=== PATIENT | male | born 1970 | race Caucasian/White ===

== ENCOUNTER 2023-01-02 10:42 | Day surgery (SDC) | payer BC ==
[2022-12-31 13:41] VITALS: BMI 30.2
[2023-01-02] MEDS: LACTATED RINGERS 1,000 ML IV SCH ×2 (11:20→12:01)
[2023-01-02] MEDS ORDERED: LIDOCAINE 1% (10MG/ML) FOR IV START INTRADERMA ONE (11:20)
[2023-01-02] MEDS ORDERED: PROPOFOL 10 MG/ML 20 ML VIAL IV ONE (12:04)
--- NOTE | 2023-01-02 12:16 | P.PCN ---
Date of Procedure: 01/02/23 Procedure(s) Performed: BRIEF HISTORY: Patient is a 52-year-old pleasant white male scheduled for an elective colonoscopy as a part of screening for colon cancer. PROCEDURE PERFORMED: Colonoscopy. PREOPERATIVE DIAGNOSIS: Screening for colon cancer. IV sedation per Anesthesia. PROCEDURE: After informed consent was obtained, the patient, was brought into the endoscopy unit. IV sedation was administered by Anesthesia under continuous monitoring. Digital rectal examination was normal. Initially the Olympus CF-160 flexible video colonoscope was then inserted in the rectum, gradually advanced into the cecum without any difficulty. Careful examination was performed as the scope was gradually being withdrawn. Ileocecal valve and the appendiceal orifice were visualized and appeared normal. Prep was excellent. Mucosa of the cecum, ascending colon, transverse colon, descending colon, sigmoid colon, and rectum appeared normal. Retroflexion was performed in the rectum and no lesions were seen. The patient tolerated the procedure well. IMPRESSION: Normal-appearing colon from rectum to cecum with no emesis of colorectal neoplasia . RECOMMENDATIONS: Findings of this examination were discussed with the patient as well as his family.. He was advised to have a repeat surveillance colonoscopy in 10 years.
[2023-01-02 13:16] VITALS: BP 124/82; PULSE 56; RESP 18; TEMP 96.8
== END 2023-01-02 12:55 | disposition home or self-care (01) ==
LOC: ORWHC2ENDO 10:42
PROVIDERS: ATTEND Internal Medicine Gastroenterology
DX: Z12.11 Encounter for screening for malignant neoplasm of colon (principal); Z88.0 Allergy status to penicillin
CPT/HCPCS: 45378; J2704; G0121

== ENCOUNTER → 2024-09-03 | Outpatient (CLI) | payer BC ==
--- NOTE | 2024-09-03 09:29 | XR ---
EXAMINATION TYPE: XR foot complete RT DATE OF EXAM: 09/03/2024 CLINICAL INDICATION: Male, 54 years old with history of M29.671 M20.21 M19.071, pain TECHNIQUE: Frontal, lateral, and oblique images of the right foot are obtained. COMPARISON: None FINDINGS: There is no acute fracture/dislocation evident in the right foot. The joint spaces in the right foot appear within normal limits. The overlying soft tissue appears unremarkable. IMPRESSION: Unremarkable study. [facility], , 09/03/2024 9:27 AM
== END | disposition home or self-care (01) ==
LOC: LABWHC1 08:53
PROVIDERS: ATTEND Podiatrist Primary Podiatric Medicine
DX: M19.071 Primary osteoarthritis, right ankle and foot (principal); M20.21 Hallux rigidus, right foot; M10.9 Gout, unspecified
CPT/HCPCS: 36415; 84550